=== PATIENT | female | born 1945 | race Caucasian/White ===

== ENCOUNTER → 2020-12-05 | Outpatient (CLI) | payer MEDICARE, BC ==
--- NOTE | 2020-12-05 13:07 | REP ---
INDICATION: ENCOUNTER FOR OTHER PREPROCEDURAL EXAMINATION. COMPARISON: No comparison chest x-ray. TECHNIQUE: Three views.. FINDINGS: Patient has a right shoulder arthroplasty. This appears to be medially dislocated on the frontal view. There are no postsurgical prior studies of the right shoulder for comparison. A coiled loop of catheter material is visible in the left upper quadrant of the abdomen. The lungs are well inflated and free of infiltrate. The pleural angles are sharp. Heart size is normal. The aorta is somewhat tortuous. There are degenerative changes in thoracic spine. IMPRESSION: No active cardiopulmonary disease. 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 <Electronically signed by Wei Regalado > 12/05/20 [id number]
[2020-12-05 15:44] LABS: BLOOD UREA NITROGEN 16 MG/DL (7-18); CALCIUM LEVEL 9.6 MG/DL (8.8-10.2); CARBON DIOXIDE LEVEL 29 MEQ/L (21-32); CHLORIDE LEVEL 107 MEQ/L (98-107); CREATININE FOR GFR 0.67 MG/DL (0.55-1.30); GLOMERULAR FILTRATION RATE > 60.0 (>39); GLUCOSE, FASTING 83 MG/DL (70-100); POTASSIUM SERUM 4.3 MEQ/L (3.5-5.1); SODIUM LEVEL 141 MEQ/L (136-145)
== END ==
LOC: M PLAIMG 12:20
PROVIDERS: ATTEND Orthopaedic Surgery
DX: Z01.812 Encounter for preprocedural laboratory examination (principal); Z20.828 Contact with and (suspected) exposure to other viral communicable diseases

== ENCOUNTER 2023-11-23 14:21 | Inpatient (IN) | payer MEDICARE ==
[~2023-11-23] VITALS: Ht 149.9 cm; Wt 105.0 kg
[2023-11-23 15:36] LABS: BASO % 0.3 % (0.0-1.0); EOS % 0.5 % (0.0-3.0); HEMATOCRIT 45.5 % (36.0-47.0); HEMOGLOBIN 15.8 g/dl (12.0-15.5); LYMPH # 0.7 10^3/uL (1.5-5.0); LYMPH % 11.5 % (24.0-44.0); MEAN CORPUSCULAR HEMOGLOBIN 33.5 pg (27.0-33.0); MEAN CORPUSCULAR HGB CONC 34.7 g/dl (32.0-36.5); MEAN CORPUSCULAR VOLUME 96.4 fl (80.0-96.0); MONO # 0.6 10^3/uL (0.0-0.8); NEUTROPHILS # 4.8 10^3/uL (1.5-8.5); NEUTROPHILS % 78.4 % (36.0-66.0); PLATELET COUNT, AUTOMATED 114 10^3/uL (150-450); RED BLOOD COUNT 4.72 10^6/uL (4.00-5.40); WHITE BLOOD COUNT 6.1 10^3/uL (4.0-10.0)
[2023-11-23 15:43] LABS: ERYTHROCYTE SEDIMENTATION RATE 28 mm/hr (0-30)
[2023-11-23] MEDS ORDERED: FURO40TA2 PO (15:53)
[2023-11-23] MEDS ORDERED: PANT40TA29 PO (15:54)
[2023-11-23] MEDS ORDERED: ELIQ5TAB PO (15:54)
[2023-11-23] MEDS ORDERED: POTA20PW PO (15:54)
[2023-11-23] MEDS ORDERED: METO50TA7 PO (15:54)
[2023-11-23] MEDS ORDERED: HOME MED LIST COMPLETE! XX SCH (15:55)
[2023-11-23] MEDS ORDERED: VANCOMYCIN HCL 2,000 MG in D5W 500 ML IV ONE (17:45)
[2023-11-23 18:11] LABS: PROCALCITONIN 0.21 ng/ml
[2023-11-23] MEDS: VANCOMYCIN HCL 1,000 MG, VIAL MATE ADAPTER 1 EACH in D5W 250 ML IV ONE ×2 (18:11→19:31)
[2023-11-23 18:12] LABS: ALBUMIN 2.6 G/DL (3.2-5.2); ALKALINE PHOSPHATASE 140 U/L (46-116); ALT/SGPT 20 U/L (7.0-40); AST/SGOT 58 U/L (<34); BILIRUBIN,DIRECT 5.7 MG/DL (<0.4); BILIRUBIN,TOTAL 9.3 MG/DL (0.3-1.2); BLOOD UREA NITROGEN 21 MG/DL (9-23); CALCIUM LEVEL 10.4 MG/DL (8.3-10.6); CARBON DIOXIDE LEVEL 26 MMOL/L (20-31); CHLORIDE LEVEL 99 MMOL/L (98-107); CREATININE FOR GFR 0.91 MG/DL (0.55-1.30); GLOMERULAR FILTRATION RATE > 60.0 (>39); GLUCOSE, FASTING 100 MG/DL (74-106); POTASSIUM SERUM 4.8 MMOL/L (3.5-5.1); SODIUM LEVEL 132 MMOL/L (136-145); TOTAL PROTEIN 6.4 G/DL (5.7-8.2)
[2023-11-23] MEDS ORDERED: ISOVUE-370 76% 100ML VIAL As Ordered ONE (18:42)
[2023-11-23] MEDS: NS 1,000 ML IV ONE (19:17)
[2023-11-23 21:22] LABS: APPEARANCE, URINE HAZY (CLEAR); BACTERIA, URINE AUTO NEGATIVE (NEGATIVE); BILIRUBIN, URINE AUTO NEGATIVE (NEGATIVE); BLOOD, URINE BLOOD NEGATIVE (NEGATIVE); COLOR, URINE AMBER (YELLOW); GLUCOSE, URINE (UA) AUTO NEGATIVE (NEGATIVE); KETONE, URINE AUTO NEGATIVE (NEGATIVE); LEUKOCYTE ESTERASE, URINE AUTO NEGATIVE (NEGATIVE); MUCUS, URINE SMALL (NEGATIVE); NITRITE, URINE AUTO NEGATIVE (NEGATIVE); PROTEIN, URINE AUTO 1+ mg/dL (NEGATIVE); RBC, URINE AUTO 0 /HPF (0-3); SPECIFIC GRAVITY URINE AUTO 1.016 (1.002-1.035); SQUAMOUS EPITHELIAL CELL UR AU 12 /HPF (0-6); WBC, URINE AUTO 0 /HPF (0-3)
[2023-11-23 22:38] LABS: ALBUMIN 2.7 G/DL (3.2-5.2); BILIRUBIN,DIRECT 5.4 MG/DL (<0.4); BILIRUBIN,TOTAL 9.3 MG/DL (0.3-1.2); TOTAL PROTEIN 6.7 G/DL (5.7-8.2)
[2023-11-23] MEDS: METOPROLOL 5 MG/5 ML VIAL IV STA (23:23)
[2023-11-24] VITALS (15 sets, daily range): BP systolic 104–154; BP diastolic 51–75; PULSE 84; TEMP 97.1–98; O2SAT 92–99
[2023-11-24] MEDS: APIXABAN 5 MG TAB (ELIQUIS) PO ONE
[2023-11-24] MEDS ORDERED: MAALOX 30 ML SUSP *UDC PO PRN (01:15)
[2023-11-24 03:07] LABS: INR 2.59; PROTHROMBIN TIME 26.9 SECONDS (12.5-14.5)
[2023-11-24] MEDS ORDERED: DIGOXIN INJ 0.5 MG/2 ML AMP IV SCH (03:10)
[2023-11-24 03:22] LABS: THYROID STIMULATING HORMONE 4.965 uIU/ML (0.55-4.78)
[2023-11-24 03:34] LABS: HEPATITIS B SURFACE ANTIGEN NEGATIVE (NEGATIVE)
[2023-11-24 03:56] LABS: HEPATITIS B CORE ANTIBODY IGM NEGATIVE (NEGATIVE)
[2023-11-24] MEDS: DOXYCYCLINE HYCLATE 100MG TABLET PO SCH (04:19)
[2023-11-24] MEDS: DIGOXIN INJ 0.5 MG/2 ML AMP IV ONE (04:21)
[2023-11-24] MEDS: FUROSEMIDE 40MG/4ML VIAL IV ONE (04:21)
[2023-11-24] MEDS: ACETAMINOPHEN TAB 650MG DOSE (2X325MG) PO PRN (06:27)
[2023-11-24] MEDS: MICONAZOLE 2 % POWDER (DESENEX) TOP SCH (06:35)
[2023-11-24 07:51] LABS: ALBUMIN 2.8 G/DL (3.2-5.2); ALKALINE PHOSPHATASE 153 U/L (46-116); ALT/SGPT 20 U/L (7.0-40); AST/SGOT 42 U/L (<34); BILIRUBIN,DIRECT 6.9 MG/DL (<0.4); BILIRUBIN,TOTAL 10.8 MG/DL (0.3-1.2); TOTAL PROTEIN 6.6 G/DL (5.7-8.2)
[2023-11-24] MEDS: POTASSIUM CHLORIDE 10MEQ SR TABLET PO SCH (08:31)
[2023-11-24] MEDS: APIXABAN 5 MG TAB (ELIQUIS) PO SCH (08:31)
[2023-11-24] MEDS: PANTOPRAZOLE 40MG TAB (PROTONIX) PO SCH (08:31)
[2023-11-24] MEDS: DIGOXIN INJ 0.5 MG/2 ML AMP IV SCH (10:00)
[2023-11-24] MEDS: DIGOXIN INJ 0.5 MG/2 ML AMP IV STA (10:32)
[2023-11-24 12:14] LABS: BLOOD UREA NITROGEN 21 MG/DL (9-23); CALCIUM LEVEL 10.5 MG/DL (8.3-10.6); CARBON DIOXIDE LEVEL 23 MMOL/L (20-31); CHLORIDE LEVEL 96 MMOL/L (98-107); GLOMERULAR FILTRATION RATE > 60.0 (>39); GLUCOSE, FASTING 98 MG/DL (74-106); SODIUM LEVEL 129 MMOL/L (136-145)
[2023-11-24] MEDS: FUROSEMIDE 40MG/4ML VIAL IV SCH (12:43)
[2023-11-24] MEDS: METOPROLOL TART 50 MG TAB PO SCH (13:14)
[2023-11-24] MEDS: MOM 30ML SUSPENSION UDC PO PRN (13:14)
[2023-11-25] VITALS (7 sets, daily range): BP systolic 100–126; BP diastolic 60–92; TEMP 96.7–97.6; O2SAT 93–100
[2023-11-25 06:01] LABS: HEMATOCRIT 43.2 % (36.0-47.0); HEMOGLOBIN 14.9 g/dl (12.0-15.5); MEAN CORPUSCULAR HEMOGLOBIN 33.4 pg (27.0-33.0); MEAN CORPUSCULAR HGB CONC 34.5 g/dl (32.0-36.5); MEAN CORPUSCULAR VOLUME 96.9 fl (80.0-96.0); PLATELET COUNT, AUTOMATED 105 10^3/uL (150-450); RED BLOOD COUNT 4.46 10^6/uL (4.00-5.40); WHITE BLOOD COUNT 5.6 10^3/uL (4.0-10.0)
[2023-11-25 06:30] LABS: BLOOD UREA NITROGEN 22 MG/DL (9-23); CALCIUM LEVEL 10.2 MG/DL (8.3-10.6); CARBON DIOXIDE LEVEL 29 MMOL/L (20-31); CHLORIDE LEVEL 98 MMOL/L (98-107); GLOMERULAR FILTRATION RATE > 60.0 (>39); GLUCOSE, FASTING 97 MG/DL (74-106); MAGNESIUM LEVEL 1.5 MG/DL (1.8-2.4); POTASSIUM SERUM 3.8 MMOL/L (3.5-5.1); SODIUM LEVEL 132 MMOL/L (136-145)
[2023-11-25] MEDS: MAG SULF 1GM/100ML (MAG RUN) 1 GM in IV 1 EA IV SCH (08:37)
[2023-11-25 12:16] LABS: ALBUMIN 2.4 G/DL (3.2-5.2); ALKALINE PHOSPHATASE 155 U/L (46-116); ALT/SGPT 16 U/L (7.0-40); AST/SGOT 38 U/L (<34); BILIRUBIN,DIRECT 5.5 MG/DL (<0.4); TOTAL PROTEIN 6.2 G/DL (5.7-8.2)
[2023-11-25] MEDS: POTASSIUM CHLORIDE 10MEQ SR TABLET PO ONE (12:52)
[2023-11-25] MEDS: DIGOXIN 0.125 MG TAB PO SCH (16:40)
[2023-11-25 18:37] LABS: BLOOD UREA NITROGEN 22 MG/DL (9-23); CALCIUM LEVEL 9.9 MG/DL (8.3-10.6); CARBON DIOXIDE LEVEL 31 MMOL/L (20-31); CHLORIDE LEVEL 96 MMOL/L (98-107); CREATININE FOR GFR 0.91 MG/DL (0.55-1.30); GLOMERULAR FILTRATION RATE > 60.0 (>39); GLUCOSE, FASTING 103 MG/DL (74-106); POTASSIUM SERUM 3.4 MMOL/L (3.5-5.1); SODIUM LEVEL 131 MMOL/L (136-145)
[2023-11-26 04:00] VITALS: BP 114/55; TEMP 97; O2SAT 95
[2023-11-26 05:32] LABS: HEMATOCRIT 41.7 % (36.0-47.0); HEMOGLOBIN 14.6 g/dl (12.0-15.5); MEAN CORPUSCULAR HEMOGLOBIN 33.7 pg (27.0-33.0); MEAN CORPUSCULAR VOLUME 96.3 fl (80.0-96.0); RED BLOOD COUNT 4.33 10^6/uL (4.00-5.40); WHITE BLOOD COUNT 4.7 10^3/uL (4.0-10.0)
[2023-11-26 05:50] LABS: BLOOD UREA NITROGEN 21 MG/DL (9-23); CALCIUM LEVEL 9.7 MG/DL (8.3-10.6); CARBON DIOXIDE LEVEL 29 MMOL/L (20-31); CHLORIDE LEVEL 100 MMOL/L (98-107); CREATININE FOR GFR 0.83 MG/DL (0.55-1.30); GLOMERULAR FILTRATION RATE > 60.0 (>39); GLUCOSE, FASTING 99 MG/DL (74-106); MAGNESIUM LEVEL 1.6 MG/DL (1.8-2.4); SODIUM LEVEL 133 MMOL/L (136-145)
[2023-11-26 06:16] LABS: PLATELET COUNT, AUTOMATED 92 10^3/uL (150-450)
[2023-11-26 09:10] VITALS: BP 104/68; TEMP 96.9; O2SAT 95
[2023-11-26] MEDS: MAGNESIUM OXIDE 400MG TAB (MAG-OX) PO SCH (09:44)
[2023-11-26] MEDS: MAG SULF 1GM/100ML (MAG RUN) 1 GM in IV 1 EA IV ONE (09:44)
[2023-11-26 12:30] VITALS: BP 111/62; TEMP 97.2; O2SAT 98
[2023-11-26 16:00] VITALS: BP 116/66; TEMP 97.6; O2SAT 97
[2023-11-26 17:57] LABS: BLOOD UREA NITROGEN 21 MG/DL (9-23); CALCIUM LEVEL 9.5 MG/DL (8.3-10.6); CARBON DIOXIDE LEVEL 29 MMOL/L (20-31); CHLORIDE LEVEL 97 MMOL/L (98-107); CREATININE FOR GFR 0.84 MG/DL (0.55-1.30); GLOMERULAR FILTRATION RATE > 60.0 (>39); GLUCOSE, FASTING 95 MG/DL (74-106); POTASSIUM SERUM 4.2 MMOL/L (3.5-5.1); SODIUM LEVEL 130 MMOL/L (136-145)
[2023-11-26 20:00] VITALS: BP 107/63; TEMP 97.4; O2SAT 100
[2023-11-27] VITALS (12 sets, daily range): BP systolic 100–123; BP diastolic 56–66; TEMP 96.8–97.8; O2SAT 90–97
[2023-11-27 06:09] LABS: HEMATOCRIT 41.5 % (36.0-47.0); HEMOGLOBIN 14.4 g/dl (12.0-15.5); MEAN CORPUSCULAR HEMOGLOBIN 33.6 pg (27.0-33.0); MEAN CORPUSCULAR HGB CONC 34.7 g/dl (32.0-36.5); PLATELET COUNT, AUTOMATED 100 10^3/uL (150-450); RED BLOOD COUNT 4.28 10^6/uL (4.00-5.40); WHITE BLOOD COUNT 4.1 10^3/uL (4.0-10.0)
[2023-11-27 06:32] LABS: BLOOD UREA NITROGEN 20 MG/DL (9-23); CALCIUM LEVEL 9.5 MG/DL (8.3-10.6); CARBON DIOXIDE LEVEL 30 MMOL/L (20-31); CHLORIDE LEVEL 97 MMOL/L (98-107); CREATININE FOR GFR 0.79 MG/DL (0.55-1.30); GLOMERULAR FILTRATION RATE > 60.0 (>39); GLUCOSE, FASTING 92 MG/DL (74-106); MAGNESIUM LEVEL 1.5 MG/DL (1.8-2.4); POTASSIUM SERUM 3.6 MMOL/L (3.5-5.1); SODIUM LEVEL 132 MMOL/L (136-145)
[2023-11-27] MEDS: MIDODRINE 5 MG TAB PO ONE ×2 (08:03→14:38)
[2023-11-27 08:17] LABS: DIGOXIN LEVEL 0.9 NG/ML (0.8-2.0)
[2023-11-27] MEDS: POTASSIUM CHLORIDE 10MEQ SR TABLET PO ONE (09:18)
[2023-11-27] MEDS: MAG SULF 1GM/100ML (MAG RUN) 1 GM in IV 1 EA IV ONE (09:18)
[2023-11-27] MEDS: FUROSEMIDE injection 250 MG in D5W 225 ML IV SCH (10:00)
[2023-11-27] MEDS: METOPROLOL TART 25 MG TABLET PO SCH (12:00)
[2023-11-27] MEDS: SENOKOT S TAB PO PRN (15:48)
[2023-11-27 17:50] LABS: BLOOD UREA NITROGEN 20 MG/DL (9-23); CALCIUM LEVEL 9.4 MG/DL (8.3-10.6); CARBON DIOXIDE LEVEL 27 MMOL/L (20-31); CHLORIDE LEVEL 100 MMOL/L (98-107); CREATININE FOR GFR 0.79 MG/DL (0.55-1.30); GLOMERULAR FILTRATION RATE > 60.0 (>39); GLUCOSE, FASTING 104 MG/DL (74-106); POTASSIUM SERUM 5.9 MMOL/L (3.5-5.1); SODIUM LEVEL 131 MMOL/L (136-145)
[2023-11-27] MEDS: BISACODYL 10MG SUPP PR PRN (18:26)
[2023-11-27] MEDS: MOM 30ML SUSPENSION UDC PO PRN (19:47)
[2023-11-27] MEDS ORDERED: PILL CUTTER 1 EACH XX ONE (21:17)
[2023-11-28] VITALS (35 sets, daily range): BP systolic 92–124; BP diastolic 52–70; TEMP 96.7–97.7; O2SAT 89–98
[2023-11-28 07:08] LABS: HEMATOCRIT 42.6 % (36.0-47.0); HEMOGLOBIN 14.4 g/dl (12.0-15.5); MEAN CORPUSCULAR HEMOGLOBIN 33.3 pg (27.0-33.0); MEAN CORPUSCULAR HGB CONC 33.8 g/dl (32.0-36.5); MEAN CORPUSCULAR VOLUME 98.6 fl (80.0-96.0); RED BLOOD COUNT 4.32 10^6/uL (4.00-5.40); WHITE BLOOD COUNT 3.9 10^3/uL (4.0-10.0)
[2023-11-28 07:14] LABS: PLATELET COUNT, AUTOMATED 92 10^3/uL (150-450)
[2023-11-28 07:50] LABS: DIGOXIN LEVEL 1.1 NG/ML (0.8-2.0)
[2023-11-28 08:10] LABS: BLOOD UREA NITROGEN 19 MG/DL (9-23); CALCIUM LEVEL 9.5 MG/DL (8.3-10.6); CARBON DIOXIDE LEVEL 30 MMOL/L (20-31); CHLORIDE LEVEL 102 MMOL/L (98-107); CREATININE FOR GFR 0.76 MG/DL (0.55-1.30); GLOMERULAR FILTRATION RATE > 60.0 (>39); GLUCOSE, FASTING 90 MG/DL (74-106); MAGNESIUM LEVEL 1.6 MG/DL (1.8-2.4); POTASSIUM SERUM 3.5 MMOL/L (3.5-5.1); SODIUM LEVEL 134 MMOL/L (136-145)
[2023-11-28] MEDS: MIDODRINE 5 MG TAB PO SCH (08:33)
[2023-11-28] MEDS: MIRALAX *UNIT DOSE* 17GM PACKET PO PRN (08:34)
[2023-11-28 10:55] LABS: ALBUMIN 2.2 G/DL (3.2-5.2); TOTAL PROTEIN 5.7 G/DL (5.7-8.2)
[2023-11-28] MEDS: MAG SULF 1GM/100ML (MAG RUN) 1 GM in IV 1 EA IV ONE (14:50)
[2023-11-28 18:03] LABS: BLOOD UREA NITROGEN 20 MG/DL (9-23); CALCIUM LEVEL 9.6 MG/DL (8.3-10.6); CARBON DIOXIDE LEVEL 31 MMOL/L (20-31); CHLORIDE LEVEL 102 MMOL/L (98-107); CREATININE FOR GFR 0.81 MG/DL (0.55-1.30); GLOMERULAR FILTRATION RATE > 60.0 (>39); GLUCOSE, FASTING 109 MG/DL (74-106); POTASSIUM SERUM 3.9 MMOL/L (3.5-5.1); SODIUM LEVEL 134 MMOL/L (136-145)
[2023-11-29] VITALS (15 sets, daily range): BP systolic 89–121; BP diastolic 52–85; TEMP 97.1–98.1; O2SAT 90–96
[2023-11-29 07:18] LABS: HEMATOCRIT 38.8 % (36.0-47.0); HEMOGLOBIN 13.2 g/dl (12.0-15.5); MEAN CORPUSCULAR HEMOGLOBIN 33.3 pg (27.0-33.0); RED BLOOD COUNT 3.96 10^6/uL (4.00-5.40); WHITE BLOOD COUNT 4.7 10^3/uL (4.0-10.0)
[2023-11-29 07:21] LABS: PLATELET COUNT, AUTOMATED 88 10^3/uL (150-450)
[2023-11-29 07:43] LABS: BLOOD UREA NITROGEN 20 MG/DL (9-23); CARBON DIOXIDE LEVEL 32 MMOL/L (20-31); CHLORIDE LEVEL 101 MMOL/L (98-107); CREATININE FOR GFR 0.78 MG/DL (0.55-1.30); GLOMERULAR FILTRATION RATE > 60.0 (>39); GLUCOSE, FASTING 102 MG/DL (74-106); MAGNESIUM LEVEL 1.7 MG/DL (1.8-2.4); POTASSIUM SERUM 3.8 MMOL/L (3.5-5.1); SODIUM LEVEL 137 MMOL/L (136-145)
[2023-11-29] MEDS: FUROSEMIDE 40MG/4ML VIAL IV ONE (08:50)
[2023-11-29] MEDS: FUROSEMIDE 40MG/4ML VIAL IV SCH (12:49)
[2023-11-29 18:14] LABS: BLOOD UREA NITROGEN 20 MG/DL (9-23); CALCIUM LEVEL 10.2 MG/DL (8.3-10.6); CARBON DIOXIDE LEVEL 31 MMOL/L (20-31); CHLORIDE LEVEL 98 MMOL/L (98-107); CREATININE FOR GFR 0.78 MG/DL (0.55-1.30); GLOMERULAR FILTRATION RATE > 60.0 (>39); GLUCOSE, FASTING 96 MG/DL (74-106); POTASSIUM SERUM 3.4 MMOL/L (3.5-5.1); SODIUM LEVEL 133 MMOL/L (136-145)
[2023-11-30] VITALS (19 sets, daily range): BP systolic 104–125; BP diastolic 50–72; TEMP 97.5–98.6; O2SAT 91–97
[2023-11-30 06:14] LABS: HEMATOCRIT 36.8 % (36.0-47.0); HEMOGLOBIN 12.6 g/dl (12.0-15.5); MEAN CORPUSCULAR HEMOGLOBIN 33.4 pg (27.0-33.0); MEAN CORPUSCULAR HGB CONC 34.2 g/dl (32.0-36.5); MEAN CORPUSCULAR VOLUME 97.6 fl (80.0-96.0); RED BLOOD COUNT 3.77 10^6/uL (4.00-5.40); WHITE BLOOD COUNT 4.3 10^3/uL (4.0-10.0)
[2023-11-30 06:21] LABS: PLATELET COUNT, AUTOMATED 80 10^3/uL (150-450)
[2023-11-30 06:37] LABS: BLOOD UREA NITROGEN 19 MG/DL (9-23); CALCIUM LEVEL 10.2 MG/DL (8.3-10.6); CARBON DIOXIDE LEVEL 32 MMOL/L (20-31); CHLORIDE LEVEL 98 MMOL/L (98-107); CREATININE FOR GFR 0.81 MG/DL (0.55-1.30); GLOMERULAR FILTRATION RATE > 60.0 (>39); GLUCOSE, FASTING 91 MG/DL (74-106); MAGNESIUM LEVEL 1.6 MG/DL (1.8-2.4); POTASSIUM SERUM 3.3 MMOL/L (3.5-5.1); SODIUM LEVEL 137 MMOL/L (136-145)
[2023-11-30] MEDS: MAG SULF 1GM/100ML (MAG RUN) 1 GM in IV 1 EA IV SCH (09:01)
[2023-11-30] MEDS: POTASSIUM CHLORIDE 10MEQ SR TABLET PO SCH (09:06)
[2023-11-30 18:03] LABS: BLOOD UREA NITROGEN 18 MG/DL (9-23); CALCIUM LEVEL 10.2 MG/DL (8.3-10.6); CARBON DIOXIDE LEVEL 32 MMOL/L (20-31); CHLORIDE LEVEL 99 MMOL/L (98-107); CREATININE FOR GFR 0.77 MG/DL (0.55-1.30); GLOMERULAR FILTRATION RATE > 60.0 (>39); GLUCOSE, FASTING 105 MG/DL (74-106); POTASSIUM SERUM 3.7 MMOL/L (3.5-5.1); SODIUM LEVEL 136 MMOL/L (136-145)
[2023-12-01] VITALS (29 sets, daily range): BP systolic 97–129; BP diastolic 52–74; TEMP 97.1–98.8; O2SAT 88–96
[2023-12-01 05:46] LABS: HEMATOCRIT 36.8 % (36.0-47.0); HEMOGLOBIN 12.5 g/dl (12.0-15.5); MEAN CORPUSCULAR HEMOGLOBIN 33.4 pg (27.0-33.0); MEAN CORPUSCULAR VOLUME 98.4 fl (80.0-96.0); RED BLOOD COUNT 3.74 10^6/uL (4.00-5.40); WHITE BLOOD COUNT 4.2 10^3/uL (4.0-10.0)
[2023-12-01 05:49] LABS: PLATELET COUNT, AUTOMATED 82 10^3/uL (150-450)
[2023-12-01 06:09] LABS: BLOOD UREA NITROGEN 18 MG/DL (9-23); CALCIUM LEVEL 10.4 MG/DL (8.3-10.6); CARBON DIOXIDE LEVEL 33 MMOL/L (20-31); CHLORIDE LEVEL 98 MMOL/L (98-107); CREATININE FOR GFR 0.77 MG/DL (0.55-1.30); GLOMERULAR FILTRATION RATE > 60.0 (>39); GLUCOSE, FASTING 108 MG/DL (74-106); MAGNESIUM LEVEL 1.7 MG/DL (1.8-2.4); POTASSIUM SERUM 3.5 MMOL/L (3.5-5.1); SODIUM LEVEL 135 MMOL/L (136-145)
[2023-12-01] MEDS ORDERED: IPRATROPIUM 0.02% SOLN 0.5MG 2.5ML NEB INH PRN (07:55)
[2023-12-01] MEDS ORDERED: LEVALBUTEROL 1.25MG 0.5ML CONCENTRATE NEB INH PRN (07:55)
[2023-12-01] MEDS: POTASSIUM CHLORIDE 10MEQ SR TABLET PO SCH (09:05)
[2023-12-01] MEDS: MAG SULF 1GM/100ML (MAG RUN) 1 GM in IV 1 EA IV ONE (09:05)
[2023-12-01] MEDS: MAGNESIUM OXIDE 400MG TAB (MAG-OX) PO SCH (09:06)
[2023-12-01 15:03] LABS: MAGNESIUM LEVEL 1.6 MG/DL (1.8-2.4); POTASSIUM SERUM 3.5 MMOL/L (3.5-5.1)
[2023-12-02] VITALS (16 sets, daily range): BP systolic 102–122; BP diastolic 52–73; TEMP 97.6–98.4; O2SAT 89–95
[2023-12-02 01:01] LABS: BLOOD UREA NITROGEN 17 MG/DL (9-23); CALCIUM LEVEL 10.4 MG/DL (8.3-10.6); CARBON DIOXIDE LEVEL 30 MMOL/L (20-31); CHLORIDE LEVEL 100 MMOL/L (98-107); CREATININE FOR GFR 0.67 MG/DL (0.55-1.30); GLOMERULAR FILTRATION RATE > 60.0 (>39); GLUCOSE, FASTING 99 MG/DL (74-106); POTASSIUM SERUM 3.8 MMOL/L (3.5-5.1); SODIUM LEVEL 135 MMOL/L (136-145)
[2023-12-02] MEDS: MAG SULF 1GM/100ML (MAG RUN) 1 GM in IV 1 EA IV ONE (09:01)
[2023-12-03] VITALS (8 sets, daily range): BP systolic 103–117; BP diastolic 53–61; TEMP 97.3–98.5; O2SAT 90–94
[2023-12-03] MEDS: ONDANSETRON 4MG TAB PO ONE (05:39)
[2023-12-03 05:47] LABS: IONIZED CALCIUM 4.9 MG/DL (4.5-5.3)
[2023-12-03 06:16] LABS: BLOOD UREA NITROGEN 16 MG/DL (9-23); CALCIUM LEVEL 10.7 MG/DL (8.3-10.6); CARBON DIOXIDE LEVEL 33 MMOL/L (20-31); CHLORIDE LEVEL 100 MMOL/L (98-107); GLOMERULAR FILTRATION RATE > 60.0 (>39); GLUCOSE, FASTING 91 MG/DL (74-106); MAGNESIUM LEVEL 1.8 MG/DL (1.8-2.4); POTASSIUM SERUM 3.6 MMOL/L (3.5-5.1); SODIUM LEVEL 137 MMOL/L (136-145)
[2023-12-04] VITALS (8 sets, daily range): BP systolic 105–118; BP diastolic 51–62; TEMP 97.3–97.9; O2SAT 90–93
[2023-12-04 06:21] LABS: IONIZED CALCIUM 4.9 MG/DL (4.5-5.3)
[2023-12-04 06:29] LABS: HEMATOCRIT 37.5 % (36.0-47.0); HEMOGLOBIN 12.6 g/dl (12.0-15.5); MEAN CORPUSCULAR HEMOGLOBIN 33.8 pg (27.0-33.0); MEAN CORPUSCULAR HGB CONC 33.6 g/dl (32.0-36.5); MEAN CORPUSCULAR VOLUME 100.5 fl (80.0-96.0); RED BLOOD COUNT 3.73 10^6/uL (4.00-5.40); WHITE BLOOD COUNT 4.9 10^3/uL (4.0-10.0)
[2023-12-04 06:39] LABS: PLATELET COUNT, AUTOMATED 86 10^3/uL (150-450)
[2023-12-04 06:45] LABS: BLOOD UREA NITROGEN 13 MG/DL (9-23); CALCIUM LEVEL 10.4 MG/DL (8.3-10.6); CARBON DIOXIDE LEVEL 34 MMOL/L (20-31); CHLORIDE LEVEL 97 MMOL/L (98-107); CREATININE FOR GFR 0.76 MG/DL (0.55-1.30); GLOMERULAR FILTRATION RATE > 60.0 (>39); GLUCOSE, FASTING 82 MG/DL (74-106); MAGNESIUM LEVEL 1.7 MG/DL (1.8-2.4); POTASSIUM SERUM 3.6 MMOL/L (3.5-5.1); SODIUM LEVEL 136 MMOL/L (136-145)
[2023-12-04] MEDS: MAG SULF 1GM/100ML (MAG RUN) 1 GM in IV 1 EA IV ONE (17:50)
[2023-12-04] MEDS: LACTULOSE 20GM/30ML SYRUP UDC PO ONE (19:20)
[2023-12-05 04:59] VITALS: BP 112/64; TEMP 97.3; O2SAT 92
[2023-12-05 07:49] VITALS: BP 115/63; TEMP 97.6; O2SAT 90
[2023-12-05 08:13] LABS: BLOOD UREA NITROGEN 13 MG/DL (9-23); CALCIUM LEVEL 10.4 MG/DL (8.3-10.6); CARBON DIOXIDE LEVEL 35 MMOL/L (20-31); CHLORIDE LEVEL 97 MMOL/L (98-107); CREATININE FOR GFR 0.78 MG/DL (0.55-1.30); GLOMERULAR FILTRATION RATE > 60.0 (>39); GLUCOSE, FASTING 96 MG/DL (74-106); MAGNESIUM LEVEL 1.8 MG/DL (1.8-2.4); POTASSIUM SERUM 3.6 MMOL/L (3.5-5.1); SODIUM LEVEL 136 MMOL/L (136-145)
[2023-12-05 10:58] VITALS: BP 115/71; TEMP 97.3; O2SAT 93
[2023-12-05 12:00] VITALS: BP 115/71; TEMP 97.3; O2SAT 93
[2023-12-05 16:00] VITALS: BP 124/70; TEMP 97.9; O2SAT 94
[2023-12-05 20:00] VITALS: BP 107/63; TEMP 97.5; O2SAT 96
[2023-12-06] VITALS: BP 112/60; TEMP 97.9; O2SAT 97
[2023-12-06 04:00] VITALS: BP 114/55; TEMP 97.9; O2SAT 97
[2023-12-06 05:55] LABS: IONIZED CALCIUM 4.7 MG/DL (4.5-5.3)
[2023-12-06 06:33] LABS: BLOOD UREA NITROGEN 12 MG/DL (9-23); CALCIUM LEVEL 10.7 MG/DL (8.3-10.6); CARBON DIOXIDE LEVEL 34 MMOL/L (20-31); CHLORIDE LEVEL 98 MMOL/L (98-107); CREATININE FOR GFR 0.73 MG/DL (0.55-1.30); GLOMERULAR FILTRATION RATE > 60.0 (>39); GLUCOSE, FASTING 90 MG/DL (74-106); MAGNESIUM LEVEL 1.8 MG/DL (1.8-2.4); SODIUM LEVEL 137 MMOL/L (136-145)
[2023-12-06 08:00] VITALS: BP 115/56; TEMP 97.9; O2SAT 93
[2023-12-06 12:00] VITALS: BP 110/55; TEMP 97.5; O2SAT 93
[2023-12-06 22:00] VITALS: BP 117/55; TEMP 97.7; O2SAT 94
[2023-12-07 00:48] VITALS: BP 109/56; TEMP 97.5; O2SAT 93
[2023-12-07 06:00] VITALS: BP 107/55; TEMP 98.1; O2SAT 94
[2023-12-07 06:18] VITALS: BP 118/58
[2023-12-07 06:27] LABS: HEMATOCRIT 36.4 % (36.0-47.0); HEMOGLOBIN 12.4 g/dl (12.0-15.5); MEAN CORPUSCULAR HEMOGLOBIN 34.1 pg (27.0-33.0); MEAN CORPUSCULAR HGB CONC 34.1 g/dl (32.0-36.5); PLATELET COUNT, AUTOMATED 121 10^3/uL (150-450); RED BLOOD COUNT 3.64 10^6/uL (4.00-5.40); WHITE BLOOD COUNT 4.1 10^3/uL (4.0-10.0)
[2023-12-07 07:18] LABS: ALBUMIN 3.2 G/DL (3.2-5.2); ALKALINE PHOSPHATASE 136 U/L (46-116); ALT/SGPT 17 U/L (7.0-40); AST/SGOT 51 U/L (<34); BILIRUBIN,TOTAL 8.4 MG/DL (0.3-1.2); BLOOD UREA NITROGEN 11 MG/DL (9-23); CALCIUM LEVEL 9.9 MG/DL (8.3-10.6); CARBON DIOXIDE LEVEL 34 MMOL/L (20-31); CHLORIDE LEVEL 96 MMOL/L (98-107); GLOMERULAR FILTRATION RATE > 60.0 (>39); GLUCOSE, FASTING 89 MG/DL (74-106); MAGNESIUM LEVEL 1.8 MG/DL (1.8-2.4); POTASSIUM SERUM 3.3 MMOL/L (3.5-5.1); SODIUM LEVEL 135 MMOL/L (136-145)
[2023-12-07 08:00] VITALS: BP 106/53; TEMP 97.9; O2SAT 93
[2023-12-07 12:00] VITALS: BP 140/74; TEMP 97.7; O2SAT 97
[2023-12-07 14:18] LABS: BLOOD UREA NITROGEN 11 MG/DL (9-23); CALCIUM LEVEL 10.7 MG/DL (8.3-10.6); CARBON DIOXIDE LEVEL 36 MMOL/L (20-31); CHLORIDE LEVEL 96 MMOL/L (98-107); GLOMERULAR FILTRATION RATE > 60.0 (>39); GLUCOSE, FASTING 87 MG/DL (74-106); POTASSIUM SERUM 3.3 MMOL/L (3.5-5.1); SODIUM LEVEL 137 MMOL/L (136-145)
[2023-12-07] MEDS ORDERED: MIDO5TA PO (15:13)
[2023-12-07] MEDS ORDERED: MICR2POW TOP (15:13)
[2023-12-07] MEDS ORDERED: MAGN400T2 PO (15:13)
[2023-12-07] MEDS ORDERED: DIGO0.123 PO (15:13)
== END 2023-12-07 16:15 | DRG 292 ==
LOC: M ED 14:21 → EDBD 14:21 → M ED INP 11-24 02:26 → M PCU 11-24 03:16 → M MSPAV 12-05 11:03
PROVIDERS: ADMIT Student in an Organized Health Care Education/Training Program; ATTEND Student in an Organized Health Care Education/Training Program
PROC: B246ZZZ Ultrasonography of Right and Left Heart (ICD-10-PCS; 2023-11-24)
PROC: 30233J1 Transfusion of Nonautologous Serum Albumin into Peripheral Vein, Percutaneous Approach (ICD-10-PCS; principal; 2023-11-28)
DX: I50.33 Acute on chronic diastolic (congestive) heart failure (principal); L03.116 Cellulitis of left lower limb; J91.8 Pleural effusion in other conditions classified elsewhere; Z68.43 Body mass index [BMI] 50.0-59.9, adult; E87.1 Hypo-osmolality and hyponatremia; I48.91 Unspecified atrial fibrillation; I89.0 Lymphedema, not elsewhere classified; K75.81 Nonalcoholic steatohepatitis (NASH); W55.03XA Scratched by cat, initial encounter; Y92.9 Unspecified place or not applicable; E78.5 Hyperlipidemia, unspecified; E80.6 Other disorders of bilirubin metabolism; R91.8 Other nonspecific abnormal finding of lung field; K21.9 Gastro-esophageal reflux disease without esophagitis; L30.4 Erythema intertrigo; I73.9 Peripheral vascular disease, unspecified; G47.33 Obstructive sleep apnea (adult) (pediatric); E66.01 Morbid (severe) obesity due to excess calories; Z79.01 Long term (current) use of anticoagulants; Z79.899 Other long term (current) drug therapy; Z88.8 Allergy status to other drugs, medicaments and biological substances; Z95.828 Presence of other vascular implants and grafts; Z98.84 Bariatric surgery status; Z96.651 Presence of right artificial knee joint; Z90.49 Acquired absence of other specified parts of digestive tract; Z90.79 Acquired absence of other genital organ(s); Z87.891 Personal history of nicotine dependence; Z66 Do not resuscitate

== ENCOUNTER 2023-12-07 14:11 | Inpatient (IN) | payer MEDICARE ==
[~2023-12-07] VITALS: Ht 149.9 cm; Wt 91.0 kg
[~2023-12-07 14:11] MED LIST: ELIQ5TAB PO; FURO40TA2 PO; METO50TA7 PO; PANT40TA29 PO; POTA20PW PO
[2023-12-07] MEDS ORDERED: ONDANSETRON 4MG TAB PO PRN (15:00)
[2023-12-07] MEDS ORDERED: MAALOX 30 ML SUSP *UDC PO PRN (15:00)
[2023-12-07] MEDS ORDERED: SIMETHICONE 80MG CHEW TAB PO PRN (15:00)
[2023-12-07] MEDS ORDERED: BISACODYL 5MG TAB PO PRN (15:00)
[2023-12-07] MEDS ORDERED: MOM 30ML SUSPENSION UDC PO PRN (15:00)
[2023-12-07] MEDS ORDERED: MAGN400T2 PO (15:13)
[2023-12-07] MEDS ORDERED: MICR2POW TOP (15:13)
[2023-12-07] MEDS ORDERED: DIGO0.123 PO (15:13)
[2023-12-07] MEDS ORDERED: MIDO5TA PO (15:13)
[2023-12-07] MEDS ORDERED: LEVALBUTEROL 1.25MG 0.5ML CONCENTRATE NEB INH PRN (16:20)
[2023-12-07 16:45] VITALS: BP 137/68; TEMP 98.1; O2SAT 96
[2023-12-07] MEDS: POTASSIUM CHLORIDE 10MEQ SR TABLET PO SCH (18:16)
[2023-12-07] MEDS: FUROSEMIDE 40MG/4ML VIAL IV SCH (18:16)
[2023-12-07] MEDS: KCL 10MEQ/100ML SWI (KRUN) 10 MEQ in IV 1 EA IV ONE (19:37)
[2023-12-07 20:00] VITALS: BP 118/56; TEMP 97.8; O2SAT 96
[2023-12-07] MEDS: MICONAZOLE 2 % POWDER (DESENEX) TOP SCH (21:00)
[2023-12-07] MEDS: APIXABAN 5 MG TAB (ELIQUIS) PO SCH (21:00)
[2023-12-07] MEDS: MAGNESIUM OXIDE 400MG TAB (MAG-OX) PO SCH (21:01)
[2023-12-08 04:00] VITALS: BP 132/67; TEMP 98.9; O2SAT 95
[2023-12-08 06:34] LABS: BASO # 0.1 10^3/uL (0.0-0.2); BASO % 1.4 % (0.0-1.0); EOS # 0.1 10^3/uL (0.0-0.5); EOS % 2.9 % (0.0-3.0); HEMATOCRIT 38.2 % (36.0-47.0); HEMOGLOBIN 13.1 g/dl (12.0-15.5); LYMPH # 0.7 10^3/uL (1.5-5.0); LYMPH % 17.6 % (24.0-44.0); MEAN CORPUSCULAR HGB CONC 34.3 g/dl (32.0-36.5); MEAN CORPUSCULAR VOLUME 99.2 fl (80.0-96.0); MONO # 0.7 10^3/uL (0.0-0.8); MONO % 17.1 % (2.0-8.0); NEUTROPHILS # 2.5 10^3/uL (1.5-8.5); NEUTROPHILS % 60.8 % (36.0-66.0); PLATELET COUNT, AUTOMATED 138 10^3/uL (150-450); RED BLOOD COUNT 3.85 10^6/uL (4.00-5.40); WHITE BLOOD COUNT 4.1 10^3/uL (4.0-10.0)
[2023-12-08 06:46] LABS: BLOOD UREA NITROGEN 11 MG/DL (9-23); CALCIUM LEVEL 10.6 MG/DL (8.3-10.6); CARBON DIOXIDE LEVEL 34 MMOL/L (20-31); CHLORIDE LEVEL 99 MMOL/L (98-107); CREATININE FOR GFR 0.64 MG/DL (0.55-1.30); GLOMERULAR FILTRATION RATE > 60.0 (>39); GLUCOSE, FASTING 105 MG/DL (74-106); POTASSIUM SERUM 3.5 MMOL/L (3.5-5.1); SODIUM LEVEL 137 MMOL/L (136-145)
[2023-12-08] MEDS: PANTOPRAZOLE 40MG TAB (PROTONIX) PO SCH (07:43)
[2023-12-08] MEDS: DIGOXIN 0.125 MG TAB PO SCH (07:44)
[2023-12-08] MEDS: MIDODRINE 5 MG TAB PO SCH (07:45)
[2023-12-08 12:00] VITALS: BP 126/68; TEMP 98.8; O2SAT 94
[2023-12-08] MEDS: TORSEMIDE 20 MG TAB PO SCH (12:19)
[2023-12-08] MEDS: CIPRODEX OTIC SUSP 7.5ML AS SCH (17:03)
[2023-12-08] MEDS: ACETAMINOPHEN TAB 650MG DOSE (2X325MG) PO PRN (17:21)
[2023-12-08 20:00] VITALS: BP 127/62; TEMP 98.6; O2SAT 94
[2023-12-08] MEDS: POTASSIUM CHLORIDE 10MEQ SR TABLET PO SCH (20:46)
[2023-12-09 04:00] VITALS: BP 112/53; TEMP 99.6; O2SAT 92
[2023-12-09 06:37] LABS: IONIZED CALCIUM 4.7 MG/DL (4.5-5.3)
[2023-12-09 07:17] LABS: BLOOD UREA NITROGEN 12 MG/DL (9-23); CALCIUM LEVEL 10.4 MG/DL (8.3-10.6); CARBON DIOXIDE LEVEL 34 MMOL/L (20-31); CHLORIDE LEVEL 99 MMOL/L (98-107); CREATININE FOR GFR 0.67 MG/DL (0.55-1.30); GLOMERULAR FILTRATION RATE > 60.0 (>39); GLUCOSE, FASTING 90 MG/DL (74-106); MAGNESIUM LEVEL 1.7 MG/DL (1.8-2.4); POTASSIUM SERUM 3.4 MMOL/L (3.5-5.1); SODIUM LEVEL 138 MMOL/L (136-145)
[2023-12-09 12:17] VITALS: BP 105/56; TEMP 98.6; O2SAT 94
[2023-12-09 20:00] VITALS: BP 126/59; TEMP 98.6; O2SAT 97
[2023-12-09] MEDS: MIRALAX *UNIT DOSE* 17GM PACKET PO PRN (20:53)
[2023-12-10 04:00] VITALS: BP_SYST 128; BP_SYST 157; BP_DIAS 60; BP_DIAS 74; TEMP 97.2; TEMP 98.6
[2023-12-10 06:05] LABS: IONIZED CALCIUM 4.6 MG/DL (4.5-5.3)
[2023-12-10 06:46] LABS: BLOOD UREA NITROGEN 11 MG/DL (9-23); CARBON DIOXIDE LEVEL 34 MMOL/L (20-31); CHLORIDE LEVEL 98 MMOL/L (98-107); CREATININE FOR GFR 0.65 MG/DL (0.55-1.30); GLOMERULAR FILTRATION RATE > 60.0 (>39); GLUCOSE, FASTING 93 MG/DL (74-106); MAGNESIUM LEVEL 1.6 MG/DL (1.8-2.4); POTASSIUM SERUM 2.9 MMOL/L (3.5-5.1); SODIUM LEVEL 136 MMOL/L (136-145)
[2023-12-10] MEDS: POTASSIUM CHLORIDE 10MEQ SR TABLET PO ONE ×2 (10:11→17:08)
[2023-12-10 12:00] VITALS: BP 127/59; TEMP 97.3; O2SAT 100
[2023-12-10 16:33] LABS: BLOOD UREA NITROGEN 11 MG/DL (9-23); CALCIUM LEVEL 10.8 MG/DL (8.3-10.6); CARBON DIOXIDE LEVEL 33 MMOL/L (20-31); CHLORIDE LEVEL 99 MMOL/L (98-107); GLOMERULAR FILTRATION RATE > 60.0 (>39); GLUCOSE, FASTING 97 MG/DL (74-106); POTASSIUM SERUM 3.3 MMOL/L (3.5-5.1); SODIUM LEVEL 138 MMOL/L (136-145)
[2023-12-10 20:00] VITALS: BP 125/73; TEMP 97.9; O2SAT 92
[2023-12-11 04:00] VITALS: BP 129/58; TEMP 98.4; O2SAT 93
[2023-12-11 05:33] LABS: IONIZED CALCIUM 4.7 MG/DL (4.5-5.3)
[2023-12-11 06:03] LABS: BLOOD UREA NITROGEN 10 MG/DL (9-23); CALCIUM LEVEL 9.8 MG/DL (8.3-10.6); CARBON DIOXIDE LEVEL 32 MMOL/L (20-31); CHLORIDE LEVEL 100 MMOL/L (98-107); CREATININE FOR GFR 0.73 MG/DL (0.55-1.30); GLOMERULAR FILTRATION RATE > 60.0 (>39); GLUCOSE, FASTING 88 MG/DL (74-106); MAGNESIUM LEVEL 1.6 MG/DL (1.8-2.4); POTASSIUM SERUM 3.4 MMOL/L (3.5-5.1); SODIUM LEVEL 137 MMOL/L (136-145)
[2023-12-11 08:23] VITALS: BP 132/70; TEMP 98.4; O2SAT 94
[2023-12-11 12:00] VITALS: BP 137/64; TEMP 97; O2SAT 98
[2023-12-11 12:25] VITALS: BP 142/72
[2023-12-11 20:00] VITALS: BP 129/58; TEMP 98.4; O2SAT 93
[2023-12-12 04:00] VITALS: BP 132/57; TEMP 98.6; O2SAT 93
[2023-12-12 06:14] LABS: IONIZED CALCIUM 4.8 MG/DL (4.5-5.3)
[2023-12-12 06:48] LABS: BLOOD UREA NITROGEN 10 MG/DL (9-23); CALCIUM LEVEL 10.9 MG/DL (8.3-10.6); CARBON DIOXIDE LEVEL 30 MMOL/L (20-31); CHLORIDE LEVEL 99 MMOL/L (98-107); CREATININE FOR GFR 0.67 MG/DL (0.55-1.30); GLOMERULAR FILTRATION RATE > 60.0 (>39); GLUCOSE, FASTING 100 MG/DL (74-106); MAGNESIUM LEVEL 1.7 MG/DL (1.8-2.4); POTASSIUM SERUM 3.3 MMOL/L (3.5-5.1); SODIUM LEVEL 137 MMOL/L (136-145)
[2023-12-12 12:00] VITALS: BP 156/86; TEMP 98.4; O2SAT 95
[2023-12-12] MEDS: TORSEMIDE 20 MG TAB PO ONE (15:52)
[2023-12-12] MEDS: POTASSIUM CHLORIDE 10MEQ SR TABLET PO ONE (15:53)
[2023-12-12] MEDS: LACTOBACILLUS ACIDOPHILUS CAP (BACID) PO ONE (15:53)
[2023-12-12] MEDS: DOCUSATE SODIUM 100MG CAPSULE PO SCH (17:45)
[2023-12-12] MEDS: POTASSIUM CHLORIDE 10MEQ SR TABLET PO SCH (19:59)
[2023-12-12 20:00] VITALS: BP 113/63; TEMP 98.4; O2SAT 98
[2023-12-13 04:00] VITALS: BP 127/66; TEMP 98; O2SAT 96
[2023-12-13] MEDS: TORSEMIDE 20 MG TAB PO SCH (05:42)
[2023-12-13] MEDS: LACTOBACILLUS ACIDOPHILUS CAP (BACID) PO SCH (07:36)
[2023-12-13] MEDS: BISACODYL 5MG TAB PO SCH (07:38)
[2023-12-13 07:40] VITALS: BP 102/57
[2023-12-13] MEDS ORDERED: MAGNESIUM OXIDE 400MG TAB (MAG-OX) PO SCH (09:00)
[2023-12-13 11:57] LABS: BLOOD UREA NITROGEN 10 MG/DL (9-23); CALCIUM LEVEL 11.6 MG/DL (8.3-10.6); CARBON DIOXIDE LEVEL 30 MMOL/L (20-31); CHLORIDE LEVEL 95 MMOL/L (98-107); CREATININE FOR GFR 0.67 MG/DL (0.55-1.30); GLOMERULAR FILTRATION RATE > 60.0 (>39); GLUCOSE, FASTING 101 MG/DL (74-106); POTASSIUM SERUM 3.6 MMOL/L (3.5-5.1); SODIUM LEVEL 136 MMOL/L (136-145)
[2023-12-13 12:00] VITALS: BP 134/60; TEMP 98.1; O2SAT 96
[2023-12-13 20:00] VITALS: BP 129/65; TEMP 98.5; O2SAT 98
[2023-12-13 23:49] VITALS: BP 129/65; TEMP 98.5
[2023-12-14 04:00] VITALS: BP 112/54; TEMP 98.3; O2SAT 95
[2023-12-14 06:45] LABS: BLOOD UREA NITROGEN 10 MG/DL (9-23); CARBON DIOXIDE LEVEL 32 MMOL/L (20-31); CHLORIDE LEVEL 98 MMOL/L (98-107); CREATININE FOR GFR 0.65 MG/DL (0.55-1.30); GLOMERULAR FILTRATION RATE > 60.0 (>39); GLUCOSE, FASTING 95 MG/DL (74-106); POTASSIUM SERUM 3.1 MMOL/L (3.5-5.1); SODIUM LEVEL 138 MMOL/L (136-145)
[2023-12-14 07:51] VITALS: BP 133/75
[2023-12-14 11:40] VITALS: BP 131/60; TEMP 97.8; O2SAT 97
[2023-12-14] MEDS: POTASSIUM CHLORIDE 10MEQ SR TABLET PO ONE (11:42)
[2023-12-14] MEDS ORDERED: BISAC5TA PO (14:52)
[2023-12-14] MEDS ORDERED: COLA100C5 PO (14:52)
[2023-12-14] MEDS ORDERED: ELIQ5TAB PO (14:52)
[2023-12-14] MEDS ORDERED: DIGO0.123 PO (14:52)
[2023-12-14] MEDS ORDERED: RISATAB3 PO (14:52)
[2023-12-14] MEDS ORDERED: TORS20TA2 PO (14:52)
[2023-12-14] MEDS ORDERED: POTA-136 PO (14:52)
[2023-12-14] MEDS ORDERED: MIDO5TA PO (14:52)
[2023-12-14] MEDS ORDERED: ACET1TAB55 PO (14:52)
[2023-12-14 20:00] VITALS: BP 134/78; TEMP 98.2; O2SAT 93
[2023-12-14] MEDS: PERMETHRIN 5% CREAM 60 GM TOP ONE (21:21)
[2023-12-15] MEDS ORDERED: PERMETHRIN 5% CREAM 60 GM TOP SCH
[2023-12-15 04:00] VITALS: BP 126/61; TEMP 97.5; O2SAT 94
[2023-12-15] MEDS: MIDODRINE 5 MG TAB PO SCH (07:52)
[2023-12-15 09:53] LABS: BLOOD UREA NITROGEN 11 MG/DL (9-23); CALCIUM LEVEL 11.2 MG/DL (8.3-10.6); CARBON DIOXIDE LEVEL 30 MMOL/L (20-31); CHLORIDE LEVEL 98 MMOL/L (98-107); CREATININE FOR GFR 0.62 MG/DL (0.55-1.30); GLOMERULAR FILTRATION RATE > 60.0 (>39); GLUCOSE, FASTING 120 MG/DL (74-106); POTASSIUM SERUM 3.5 MMOL/L (3.5-5.1); SODIUM LEVEL 135 MMOL/L (136-145)
[2023-12-15] MEDS ORDERED: PERM5CRE9 TOP (10:07)
[2023-12-15] MEDS ORDERED: POTA-141 PO (10:24)
[2023-12-15] MEDS ORDERED: MIDO5TA PO (10:24)
[2023-12-15] MEDS: POTASSIUM CHLORIDE 10MEQ SR TABLET PO SCH (11:21)
[2023-12-15] MEDS: HYDROCORTISONE 1% CREAM 30GM TOP ONE (11:23)
== END 2023-12-15 12:10 | disposition home or self-care (01) | DRG 91 ==
LOC: M PM&R 16:40
PROVIDERS: ADMIT Physical Medicine & Rehabilitation; ATTEND Physical Medicine & Rehabilitation
DX: G72.81 Critical illness myopathy (principal); I50.33 Acute on chronic diastolic (congestive) heart failure; Z68.41 Body mass index [BMI] 40.0-44.9, adult; Z66 Do not resuscitate; I48.91 Unspecified atrial fibrillation; I89.0 Lymphedema, not elsewhere classified; K75.81 Nonalcoholic steatohepatitis (NASH); E78.5 Hyperlipidemia, unspecified; Z96.651 Presence of right artificial knee joint; Z98.84 Bariatric surgery status; Z90.49 Acquired absence of other specified parts of digestive tract; Z90.79 Acquired absence of other genital organ(s); Z87.891 Personal history of nicotine dependence; Z74.1 Need for assistance with personal care; Z74.09 Other reduced mobility; E66.01 Morbid (severe) obesity due to excess calories; G47.33 Obstructive sleep apnea (adult) (pediatric); I95.9 Hypotension, unspecified; E87.6 Hypokalemia; Z79.01 Long term (current) use of anticoagulants; Z79.899 Other long term (current) drug therapy; Z88.8 Allergy status to other drugs, medicaments and biological substances; H60.92 Unspecified otitis externa, left ear; L30.4 Erythema intertrigo; Z95.828 Presence of other vascular implants and grafts

== ENCOUNTER → 2023-12-19 | Outpatient (CLI) | payer MEDICARE, BC ==
[~2023-12-19] MED LIST changes: +ACET1TAB55 PO; +BISAC5TA PO; +COLA100C5 PO; +DIGO0.123 PO; +MAGN400T2 PO; +MICR2POW TOP; +MIDO5TA PO; +PERM5CRE9 TOP; +POTA-136 PO; +POTA-141 PO; +RISATAB3 PO; +TORS20TA2 PO
[2023-12-19 15:43] LABS: BLOOD UREA NITROGEN 13 MG/DL (9-23); CALCIUM LEVEL 11.5 MG/DL (8.3-10.6); CARBON DIOXIDE LEVEL 32 MMOL/L (20-31); CHLORIDE LEVEL 96 MMOL/L (98-107); CREATININE FOR GFR 0.77 MG/DL (0.55-1.30); GLOMERULAR FILTRATION RATE > 60.0 (>39); GLUCOSE, FASTING 104 MG/DL (74-106); POTASSIUM SERUM 3.5 MMOL/L (3.5-5.1); SODIUM LEVEL 136 MMOL/L (136-145)
== END ==
LOC: M LAB 14:46
PROVIDERS: ATTEND Physical Medicine & Rehabilitation
DX: E87.6 Hypokalemia (principal)

== ENCOUNTER → 2023-12-28 | Outpatient (CLI) | payer MEDICARE, BC ==
[2023-12-28 14:14] LABS: ALBUMIN 4.1 G/DL (3.2-5.2); ALKALINE PHOSPHATASE 174 U/L (46-116); ALT/SGPT 44 U/L (7.0-40); AST/SGOT 76 U/L (<34); BILIRUBIN,TOTAL 5.1 MG/DL (0.3-1.2); BLOOD UREA NITROGEN 18 MG/DL (9-23); CALCIUM LEVEL 12.3 MG/DL (8.3-10.6); CARBON DIOXIDE LEVEL 32 MMOL/L (20-31); CHLORIDE LEVEL 96 MMOL/L (98-107); CREATININE FOR GFR 0.84 MG/DL (0.55-1.30); GLOMERULAR FILTRATION RATE > 60.0 (>39); GLUCOSE, FASTING 114 MG/DL (74-106); MAGNESIUM LEVEL 2.1 MG/DL (1.8-2.4); POTASSIUM SERUM 3.8 MMOL/L (3.5-5.1); SODIUM LEVEL 136 MMOL/L (136-145); TOTAL PROTEIN 8.2 G/DL (5.7-8.2)
== END ==
LOC: M PLALAB 10:45
PROVIDERS: ATTEND Student in an Organized Health Care Education/Training Program
DX: I27.20 Pulmonary hypertension, unspecified (principal)

== ENCOUNTER → 2024-01-02 | Outpatient (CLI) | payer MEDICARE, BC | LOC: M PLALAB 15:21 | PROVIDERS: ATTEND Internal Medicine Cardiovascular Disease | DX: I48.0 Paroxysmal atrial fibrillation (principal) ==

== ENCOUNTER → 2024-01-02 | Outpatient (RCR) | payer MEDICARE, BC | END | disposition still patient (30) | LOC: M PT 12-19 12:52 | PROVIDERS: ATTEND Physical Medicine & Rehabilitation | DX: I89.0 Lymphedema, not elsewhere classified (principal) ==